=== PATIENT | male | born 1930 | race Caucasian/White ===

== ENCOUNTER → 2018-03-23 | Outpatient (CLI) | payer OTHER | LOC: RAD 03-17 10:12 | DX: K44.9 Diaphragmatic hernia without obstruction or gangrene (principal); Q39.6 Congenital diverticulum of esophagus; I10 Essential (primary) hypertension; E78.5 Hyperlipidemia, unspecified ==

== ENCOUNTER → 2018-04-18 | Outpatient (CLI) | payer OTHER | LOC: CAT 10:15 | PROVIDERS: Surgery | DX: K57.30 Diverticulosis of large intestine without perforation or abscess without bleeding (principal); N21.0 Calculus in bladder; K40.90 Unilateral inguinal hernia, without obstruction or gangrene, not specified as recurrent ==

== ENCOUNTER 2018-08-12 20:05 | Inpatient (IN) | payer OTHER ==
[~2018-08-12] VITALS: Ht 175.3 cm; Wt 82.9 kg
[2018-08-12 20:11] VITALS: BP 164/89
[2018-08-12] MEDS ORDERED: SIMVASTATIN20 MG PO (20:28)
[2018-08-12] MEDS ORDERED: AMARYL2 MG PO (20:28)
[2018-08-12] MEDS ORDERED: LISINOPRIL-HCT1 EACH PO (20:29)
[2018-08-12] MEDS ORDERED: METFORMIN HCL500 MG PO (20:30)
[2018-08-12 20:45] LABS: HEMATOCRIT 42.2 % (42.0-52.0); HEMOGLOBIN 14.3 gm/dL (14.0-18.0); MCHC 33.7 g/dL (28.0-37.0); MCV 94.8 fL (80.0-100.0); PLATELET COUNT 196 thou/uL (150-400); RBC 4.45 mil/uL (4.50-6.00); RDW 12.5 % (10.5-14.5); WBC 6.1 thou/uL (4.0-11.0)
[2018-08-12 20:55] LABS: ANION GAP 11 mmol/L (7-16); BUN 26 mg/dL (7-18); CALCIUM 9.3 mg/dL (8.5-10.1); CHLORIDE 102 mmol/L (98-107); CO2 26 mmol/L (21-32); CREATININE 1.1 mg/dL (0.7-1.3); GLUCOSE 173 mg/dL (74-106); SODIUM 139 mmol/L (136-145)
[2018-08-12 21:00] LABS: APTT 25.3 Seconds (24.5-32.8); PROTIME 10.7 Seconds (9.3-11.4)
[2018-08-12 21:04] LABS: ALBUMIN 3.8 g/dL (3.4-5.0); MAGNESIUM 2.1 mg/dL (1.8-2.4); SGOT 20 U/L (15-37); SGPT 26 U/L (30-65); TOTAL BILIRUBIN 0.4 mg/dL (<0.1-1.0); TOTAL PROTEIN 7.3 g/dL (6.4-8.2); TROPONIN-I <0.06 ng/mL (<0.06)
[2018-08-12 21:09] LABS: ABSOLUTE NEUTROPHILS 3.5 thou/uL (1.4-8.2)
[2018-08-12 21:10] LABS: ANISOCYTOSIS 1+
[2018-08-12] MEDS ORDERED: ASPIR-LOW81 MG PO (22:14)
[2018-08-12 22:23] VITALS: BP 167/86
[2018-08-12 23:00] VITALS: BP 144/98
[2018-08-12] MEDS ORDERED: PRESERVISION A1 EAC2 PO (23:07)
[2018-08-12 23:15] VITALS: BP 165/91
[2018-08-12 23:30] VITALS: BP 153/74
[2018-08-12 23:45] VITALS: BP 168/79
[2018-08-13] VITALS (53 sets, daily range): BP systolic 101–194; BP diastolic 50–91
--- NOTE | 2018-08-13 02:31 | NUR ---
08/12/188: REPORT RECEIVED FROM LAKESHIA YANG IN ED. PER REPORT DR. WELLS SAW PT IN ED. RN DID BEDSIDE SWALLOW EVAL IN ED, PT PASSED. 0: PT ARRIVED TO ROOM 245 ON ED CART, PT A/O AND TALKING, PT TRANSFERRED HIMSELF OVER TO ICU BED BY SCOOTING. CONNECTED PT TO ICU MONITOR. VSS, NIH SCORE 2, NO DISTRESS NOTED. HANDS COOL AND SLIGHTLY BLUE LIPS NOTED. VERY SLIGHT FACIAL DROOP NOTED ON RIGHT SIDE AND VERY MINIMAL DRIFT WITH RIGHT LEG NOTED, SPEECH CLEAR FOR THE MOST PART, GARBLED AT TIMES. STROKE PROTOCOL STARTED ALONG W/ ADMISSION PROCESS. PT EDUCATED ON BLEEDING S/S AND VERBALIZES UNDERSTANDING. NO ACTIVE BLEEDING NOTED. SEE DOCUMENTED ASSESSMENT. LEFT AC IV SL BUT INFILTRATED AND BRUISED, REMOVED, TIP INTACT, PRESSURE HELD, NO ACTIVE BLEEDING NOTED. FRIEND MARIXA AT BEDSIDE, UPDATED ON PT. [id number]: DR. WELLS CALLED TO CHECK ON PT - UPDATES GIVEN.
--- NOTE | 2018-08-13 02:51 | EKG ---
[place] [address] [facility] [place] [address] ELECTROCARDIOGRAM REPORT Name: MYLES PETERNETH Aron Room #: 245-P ADM IN M.R.#: [id number] ������������������ Admission: 08/12/18 ������������������ Attend Phys: David Rivero MD Discharge: ������������������ Date of : 32 Report #: [id number] ����������������������������������������������������������������� [id number] THIS REPORT FOR: //name// [facility] ED Test Date: 2018-08-12 Test Time: 20:36:31 Pat Name: TERENCE PETER Department: Room: [facility] Gender: M Fat Pressroom Worker: WG : 1930 Requested By: Wicho Rajput Order Number: [id number] MD: Wiley Cisneros Measurements Intervals [place] Rate: 62 P: 65 TX: 207 QRS: -7 QRSD: 141 T: -27 QT: 486 QTc: 494 Interpretive Statements Sinus rhythm Atrial premature complexes Right bundle branch block Baseline wander Compared to ECG 01/31/2009 13:08:39 Atrial premature complex(es) now present Electronically Signed On 08-13-2018 2:51:41 [employer] by Wiley Cisneros [email or web address] ��������������������������������������������� <ELECTRONICALLY SIGNED> ���������������������������������������� By: Wiley Cisneros MD ��������������������������������������������� 08/13/18 0251 35 35 Wiley Cisneros MD /EPI
--- NOTE | 2018-08-13 07:28 | NUR ---
PT'S VSS OVERNIGHT, NO DISTRESS NOTED, PT ON ROOM AIR. ASSESSMENTS PER DOCUMENTATION. NIH SCORE 1-2 MOST OF THE NIGHT. VERY SLIGHT RIGHT SIDED BODY WEAKNESS AND MINIMAL RIGHT SIDED FACIAL DROOP AT TIMES, RLE DRIFT INCONSISTENTLY. PT A/O AND ANSWERS ALL QUESTIONS APPROPIATELY. PT DID HAVE EPISODES OF BRADYCARDIA 40-50'S WHILE IN A DEEP SLEEP. BEDSIDE SWALLOW EVAL COMPLETED AND PASSED WITHOUT DIFFICULTY, SPEECH THERAPY EVAL ALSO IN. PT VOIDED ADEQUATE AMOUNT OF URINE > 1L. SKIN DRY AND INTACT. FINGERS COOL AND LIPS SLIGHTLY BLUE IN COLOR. NO PRN LABETALOL GIVEN OVERNIGHT. AROUND 0600 SBP 130'S - 500CC IVF BOLUS GIVEN PER DR. WELLS'S ORDERS PREVIOUSLY IN THE NIGHT. PT TOLERATED WELL, BP INCREASED ACCORDINGLY. REPORT GIVEN TO DAY SHIFT RN.
--- NOTE | 2018-08-13 17:32 | NUR ---
NIH CONT TO BE 1-2. BP KEPT WITHIN DESIRED LIMITS. SSI FOR BLOOD SUGAR CONTROL. MRI OF HEAD COMPLETED. DR WELLS HAS SEEN RESULTS, NO NEW ORDERS. PT UP TO CHAIR WITH STANDBY ASSIST, GAIT BELT, AND WALKER. PT/OT/ST ALL WORKED WITH PT TODAY.
--- NOTE | 2018-08-13 17:39 | HC ---
[facility] [place] [address] CONSULTATION Name: TERENCE PETER Room #: 245-P ADM IN M.R.#: [id number] Admission: 08/12/18 ������������������ Attend Phys: David Rivero MD Discharge: ������������������ Date of : 32 Report #: [id number] THIS REPORT FOR: //name// CC: David Hua DATE OF SERVICE: 08/12/2018 HISTORY OF PRESENT ILLNESS: This is an 88-year-old male patient who was evaluated by me for stroke. The history I get is different than the patient originally provided. The patient originally said that his stroke symptom started at around 4:30, but I spent a considerable amount of time. The patient is pretty confident now that it started at 5:30. Some of the symptoms actually started around 6:00. He is very scared of disability. His speech is significantly slurred and he has right upper extremity and right lower extremity weakness. He does have some double vision, that double vision is going on for 1 year. 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 He does not have any prior history for stroke. I confirmed this multiple times with him and he is now pretty confident that the symptoms started around 5:30 and even then the symptom was minor and major symptoms occurred around 6:00. The dictation is limited because of the time limitation. I confirmed that he has pretty significant speech difficulty and he has right-sided weakness. He is not able to walk. We frankly talked to him about TPA. I discussed with him that TPA is approved by FDA only within 3 hours of symptom onset. It has been tried in 4-1/2 hour window, but initially the patients were excluded with the age criteria, but now age criteria is not taken into consideration by some neurologist and is taken into consideration by other neurologist. I frankly discussed with him that the timing need to be accurate. If timing is not correlate the effectiveness of TPA decreases and the chances of complication increases. They were very confident the timing is accurate and symptoms started around 5:30. I frankly discussed with them that 4-1/2 hour window is not approved by TPA and effectiveness is much limited than 3-hour window. I also discussed their age criteria and the fact that the complication rate increases with the age. In the original study, the patients of his age were excluded, but now the emphasis has been to include these patients if they want to be included. The patient understood it very well. He is competent to make his decision. He was given all the options. He really wanted to get TPA. He indicated that he is very scared about the disability he has. He understands the TPA is not a magic bullet and it has benefit anywhere between 12% to 30% depending upon how [address] [address] CONSULTATION Name: TERENCE PETER Room #: 245-P ADM IN M.R.#: [id number] Admission: 08/12/18 ������������������ Attend Phys: David Rivero MD Discharge: ������������������ Date of : 32 Report #: [id number] you count that. It does have potentially catastrophic and fatal bleedings in roughly about 10% of the people at his age. After discussing all of it with the patient very frankly, the patient was started on TPA. He will be taken back for CT angio with perfusion. It will take a while for the report to come back. It is shows penumbra and a clot in the large vessel then he may have to go for a clot retrieval. Otherwise, he will be managed in the ICU and we need to monitor his blood pressure. TPA was started by Emergency Room physician, Dr. Rajput and he is the one who went over the criteria for exclusion in this patient. This was a difficult situation where management was not clear and the patient was explained all the advantages and disadvantage of TPA and he really wanted to proceed with TPA because he is very scared of disability and the present amount of disability was not acceptable to him and he was becoming worst as per history. We will dictate the other note later on as time is limited in this patient to manage him. this addendum is being added at the time of signing this note. Patient's CT angiogram and perfusion was reviewed. That did not show any abnormality. Patient tolerated TPA well. More than 50 minutes of time was spent taking care of this patient and majority of that time was spent counseling the patient and coordinating his care ��������������������������������������������� <ELECTRONICALLY SIGNED> ���������������������������������������� By: Michael Hua MD ��������������������������������������������� 08/13/18 1739 [id number] Michael Hua MD /nt
[2018-08-14] VITALS (21 sets, daily range): BP systolic 122–188; BP diastolic 49–92
--- NOTE | 2018-08-14 05:30 | NUR ---
ASSESSMENTS PER DOCUMENTATION. VSS, NO DISTRESS NOTED, PT REMAINS ON ROOM AIR. PT BRADYCARDIC AT TIMES, HR OF 39 NOTED ONCE WHILE ASLEEP. SLEEP APNEA NOTED, PT DESATS INTO THE 80'S, LOWEST SAT OF 81% WITH ALMOST IMMEDIATE INCREASE IN SATS. PT WAS VERY RESTFUL OVERNIGHT. NIH REMAINS 1-2, STILL HAS RIGHT SIDED WEAKNESS W/ VERY SLIGHT RIGHT SIDED FACIAL DROOP.
[2018-08-14 11:43] LABS: HEMATOCRIT 41.2 % (42.0-52.0); HEMOGLOBIN 13.9 gm/dL (14.0-18.0); MCH 32.2 pg (26.0-34.0); MCHC 33.6 g/dL (28.0-37.0); MCV 95.6 fL (80.0-100.0); RBC 4.31 mil/uL (4.50-6.00); RDW 12.8 % (10.5-14.5); WBC 5.7 thou/uL (4.0-11.0)
[2018-08-14 11:58] LABS: CALCIUM 9.5 mg/dL (8.5-10.1); POTASSIUM 3.9 mmol/L (3.5-5.1)
--- NOTE | 2018-08-14 17:54 | NUR ---
NIH Q4H 1-2, NO CHANGES. HEAD CT (-). SB-SR ON TELE. PT DENIES PAIN. CCT TRANSFER ORDERS RECEIVED, AWAITING AVAILABLE BED.
[2018-08-15 00:49] VITALS: BP 142/79
[2018-08-15 04:49] VITALS: BP 137/71
[2018-08-15 05:06] LABS: CHOLESTEROL 166 mg/dL (<200); HDL CHOLESTEROL 60 mg/dL (>40); LDL CHOLESTEROL 88 mg/dL (<100); TC:HDL 2.8 Ratio (Not establshd); TRIGLYCERIDE 91 mg/dL (<150); VLDL 18 mg/dL (<40)
[2018-08-15 05:14] LABS: SERUM ASSESSMENT Clear
--- NOTE | 2018-08-15 07:44 | NUR ---
SEE [facility] FOR ASSESSMENT. PT AWAITING REHAB CONSULT. SLEPT WELL DURING NOC. AWAKENS EASILY. NIH 3 WITH CONT SLURRED SPEECH AND RT SIDED WEAKNESS, SL RT FACIAL DROOP. DENIES PAIN. BP WITHIN PARAMETERS. PT PROGRESSING TOWARD GOALS. CONT PLAN OF CARE
[2018-08-15 09:00] VITALS: BP 162/83
[2018-08-15 10:17] VITALS: BP 155/82
[2018-08-15 10:18] VITALS: BP 161/87
--- NOTE | 2018-08-15 10:29 | NUR ---
CM ASSESSMENT: CASE OPENED FOR DC PLANNING. CLINICAL INFO REVIEWED. ADMITTED WITH CVA. THERAPY EVALS IN PROGRESS. ACUTE REHAB CONSULT. MET WITH PT WHO IS ALERT AND ORIENTED X4. PT LIVES ALONE IN HOUSE IN [facility]. INDEPENDENT WITH ADLS, IADLS, DRIVING. NO DME OR PREVIOUS HH. PT HAS DTR [facility] L[facility]ING IN [facility]. CLOSEST SUPPORT IS FRIEND MARIXA [phone]. PT IS AGREEABLE TO 5N ACUTE REHAB STAY IF ACCEPTED. UPDATED 5N RACHEL AND DR. WHITEHEAD AND BUNCH MAKER.
[2018-08-15 12:05] VITALS: BP 164/77
[2018-08-15] MEDS ORDERED: LISINOPRIL5 MG PO (12:43)
[2018-08-15] MEDS ORDERED: ASA5UEC PO (12:43)
[2018-08-15] MEDS ORDERED: ACETAMINOPHEN325 M1 PO (12:43)
--- NOTE | 2018-08-15 13:39 | 2DMMODE ---
[facility] [place] [address] 2 D/M-MODE ECHOCARDIOGRAM Name: TERENCE PETER Room #: 245-P [facility] IN .R.#: [id number] ������������� Admission: 08/12/18 ������������� Attend Phys: David Rivero, Discharge: ��� ������������� ��� Date of : 32 Date of Service: 08/15/18 1339 �� Report #: [id number] �������� ��������������������������������������������[id number] THIS REPORT FOR: //name// APPROVED REPORT Study performed: 08/15/2018 11:29:46 EXAM: Comprehensive 2D, Doppler, and color-flow Echocardiogram Patient Location: ICU Room #: [facility] Status: routine BSA: 1.99 HR: 63 bpm BP: 162/83 mmHg Other Information Study Quality: Adequate Indications CVA Echo Enhancing Agent Indication: Rule out Shunt Agent(s) / Amount(s) Used: Agitated Saline 6 cc 2D Dimensions RVDd: 42.11 mm IVSd: 14.22 (7-11mm) LVOT Diam: 22.42 (18-24mm) LVDd: 49.73 mm PWd: 13.62 (7-11mm) Ascending Ao: 41.28 (22-36mm) LVDs: 36.98 (25-40mm) Aortic Root: 40.71 mm Volumes Left Atrial Volume (Systole) Single Plane 4CH: 59.76 mL Single Plane 2CH: 73.54 mL LA ESV Index: 37.00 mL/m2 Aortic Valve AoV Peak Diego.: 2.29 m/s AO Peak Gr.: 20.98 mmHg LVOT Max P.61 mmHg AO Mean Gr.: 12.28 mmHg AO V2 Mean: 1.68 m/s LVOT Max V: 0.81 m/s AO V2 VTI: 55.00 cm AMANDA Vmax: 1.39 cm2 [facility] [place] [address] 2 D/M-MODE ECHOCARDIOGRAM Name: TERENCE PETER Room #: 245-P [facility] IN .R.#: [id number] ������������� Admission: 08/12/18 ������������� Attend Phys: David Rivero, Discharge: ��� ������������� ��� Date of : 32 Date of Service: 08/15/18 1339 �� Report #: [id number] �������� ��������������������������������������������[id number] Mitral Valve E/A Ratio: 1.2 MV Decel. Time: 274.70 ms MV E Max Diego.: 0.66 m/s MV A Diego.: 0.57 m/s MV PHT: 79.66 ms IVRT: 110.73 ms Pulmonary Valve PV Peak Diego.: 0.78 m/s PV Peak Gr.: 2.42 mmHg Tricuspid Valve TR Peak Diego.: 2.85 m/s RAP Estimate: 5.00 mmHg TR Peak Gr.: 32.46 mmHg PA Pressure: 37.00 mmHg Left Ventricle The left ventricle is normal size. There is normal LV segmental wall motion. Mild concentric left ventricular hypertrophy. Left ventricular systolic function is normal. LVEF is 55%. Moderate diastolic dysfunction is present (pseudonormal filling). Right Ventricle The right ventricle is normal size. The right ventricular systolic function is normal. Atria Left atrium is mildly dilated. No shunting noted with contrast bubble injection. Right atrium is mildly dilated. Aortic Valve Aortic valve is moderately calcified. Trace aortic regurgitation. 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 Calculated aortic valve area is 1.4 cm2 with maximum pressure gradient of 21 mmHg and mean pressure gradient of 12 mmHg. Mitral Valve Mitral valve leaflets are mildly thickened. Moderate mitral regurgitation. Tricuspid Valve The tricuspid valve is normal in structure. Moderate tricuspid regurgitation. Estimated PAP is 40mmHg. Pulmonic Valve [address] [address] 2 D/M-MODE ECHOCARDIOGRAM Name: TERENCE PETER Room #: 245-P [facility] IN [facility]#: [id number] ������������� Admission: 08/12/18 ������������� Attend Phys: David Rivero, Discharge: ��� ������������� ��� Date of : 32 Date of Service: 08/15/18 1339 �� Report #: [id number] �������� ��������������������������������������������[id number] The pulmonary valve is normal in structure. Moderate pulmonic regurgitation. 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 IVC is normal in size and collapses >50% with inspiration. Pericardium There is no pericardial effusion. <Conclusion> The left ventricle is normal size. LVEF is 55%. Left atrium is mildly dilated. No shunting noted with contrast bubble injection. Right atrium is mildly dilated. Aortic valve is moderately calcified. Trace aortic regurgitation. 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 Calculated aortic valve area is 1.4 cm2 with maximum pressure gradient of 21 mmHg and mean pressure gradient of 12 mmHg. Mitral valve leaflets are mildly thickened. Moderate mitral regurgitation. The tricuspid valve is normal in structure. Moderate tricuspid regurgitation. Estimated PAP is 40mmHg. The pulmonary valve is normal in structure. Moderate pulmonic regurgitation. There is no pericardial effusion. ��������������������������������������������� <ELECTRONICALLY SIGNED> ���������������������������������������� By: Wiley Cisneros MD ��������������������������������������������� 08/15/18 1339 1339 1339 Wiley Cisneros MD /INF
== END 2018-08-15 14:29 | DRG 63 ==
LOC: ER 20:05 → ICU 21:49 → EROBS 21:49 → ICU 22:25
PROVIDERS: Emergency Medicine; Psychiatry & Neurology Neuromuscular Medicine; ADMIT Family Medicine
DX: I63.9 Cerebral infarction, unspecified (principal); I10 Essential (primary) hypertension; E78.00 Pure hypercholesterolemia, unspecified; G25.81 Restless legs syndrome; E03.9 Hypothyroidism, unspecified; E11.65 Type 2 diabetes mellitus with hyperglycemia; Z89.022 Acquired absence of left finger(s); Z90.49 Acquired absence of other specified parts of digestive tract; Z79.899 Other long term (current) drug therapy
CPT/HCPCS: 10078

== ENCOUNTER 2018-08-15 12:36 | Inpatient (IN) | payer OTHER ==
[~2018-08-15] VITALS: Ht 175.3 cm; Wt 84.8 kg
[~2018-08-15 12:36] MED LIST: AMARYL2 MG PO; ASPIR-LOW81 MG PO; LISINOPRIL-HCT1 EACH PO; METFORMIN HCL500 MG PO; PRESERVISION A1 EAC2 PO; SIMVASTATIN20 MG PO
[2018-08-15] MEDS ORDERED: ASA5UEC PO (12:43)
[2018-08-15] MEDS ORDERED: LISINOPRIL5 MG PO (12:43)
[2018-08-15] MEDS ORDERED: ACETAMINOPHEN325 M1 PO (12:43)
[2018-08-15 14:35] VITALS: BP 155/78
--- NOTE | 2018-08-15 14:44 | NUR ---
DISCHARGE NOTE PT ALERT AND ORRIENTED. STEADY STAND BY ASSIST TO THE CHAIR. REPORT GIVEN TO CARLA AT 1400. ASSESSMENT AND VITALS ORDERED. PT TRANSFERED AT 1420 IN W/C TO THE FLOOR. IV KEPT PER RN REQUEST IN ORDER TO GIVEN MEDS. PT HAD NO COMPLAINTS OF PAIN, SOA, CHEST PAIN, OR N/V DURING THE SHIFT. PATIENT LIVE PARTNER MARIXA CALLED TO BE NOTIFIED OF TRANSFERS.
--- NOTE | 2018-08-15 16:34 | NUR ---
PT ARRIVED AT 1430 FROM ICU. PT IS ALERT AND ORIENTED*4 BUT FORGETFUL, STATED THAT HE HAS DIFFICULTY REMEMBERING THINGS. HE IS APPROPRIATE AND CALLS APPROPRIATELY. DENIES PAIN. VITALS STABLE. SKIN IS INTACT. HAS AN IV ON RIGHT AC, PATENT AND INTACT. UP WITH 1 PERSON MIN ASSIST, AMBULATED FROM BED TO CHAIR AND TOLERATED WELL. ANSWERED ALL ADMISSION QUESTIONS AND SIGNED ALL CONSENTS. Q1H VISUAL CHECKS. CALL LIGHT WITHIN REACH. FALL PRECAUTIONS IN PLACE
[2018-08-15 19:30] VITALS: BP 150/72
--- NOTE | 2018-08-16 00:29 | NUR ---
PT ASSESSMENT COMPLETED AND VSS. MEDS GIVEN ORDERED AND WELL TOLERATED. FALL PRECAUTIONS IN PLACE. PT DENIES PAIN/N/SOA. UP TO THE BATHROOM WITH ASST/GAIT/WALKER. SLEEPING WELL. WILL CONTINUE TO MONITOR FREQUENTLY.
[2018-08-16 04:41] LABS: HEMATOCRIT 39.8 % (42.0-52.0); HEMOGLOBIN 13.6 gm/dL (14.0-18.0); MCH 32.3 pg (26.0-34.0); MCHC 34.3 g/dL (28.0-37.0); MCV 94.2 fL (80.0-100.0); RBC 4.22 mil/uL (4.50-6.00); WBC 5.8 thou/uL (4.0-11.0)
[2018-08-16 04:48] LABS: POTASSIUM 4.2 mmol/L (3.5-5.1)
[2018-08-16 08:26] VITALS: BP 177/89
--- NOTE | 2018-08-16 12:32 | NUR ---
team meeting, recommendation : re team
--- NOTE | 2018-08-16 15:18 | NUR ---
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 ASSESSMENTS PER CHART. PT DENIES PAIN TODAY. WANTS TO STAY UPDATED ON POC AND THERAPY SCHEDULE. SCHEDULE WRITTEN ON BOARD FOR PT. DR WHITEHEAD NOTIFIED THIS MORNING OF PT MOVING TO 510. PT HAD GOOD ENDURANCE WITH THERAPY TODAY, PROGRESSING IN POC GOALS. VSS. LABS NOTED. WILL CONT TO MONITOR AND FOLLOW POC.
[2018-08-16 19:10] VITALS: BP 155/76
--- NOTE | 2018-08-17 03:44 | NUR ---
CALLING FOR STANDBY ASSIST UP TO BATHOOM WITH GAIT BELT AND WALKER. PLEASANT AND DENYING PAIN. MINIMAL RIGHT SIDED WEAKNESS APPARENT.
--- NOTE | 2018-08-17 08:32 | NUR ---
PT IS A&0X4, VERY [place], SLIGHTLY FORGETFUL, DIET DELIVERED WAS DIAB CARB CONTROL YET NEEDS MECH SOFT CHOPPED, ADDED IN , WILL DELETE OTHER DIET THIS SHIFT, PT UNDERGOING ASSESSMENT SPEECH THERAPY WHO CAUGHT THE DIET THAT NEEDED ADJUSTING. ENCOURAGED PT TO USE CALL LIGHT FOR ANY NEEDS
[2018-08-17 09:29] VITALS: BP 143/77
[2018-08-17 19:18] VITALS: BP 151/93
--- NOTE | 2018-08-18 04:24 | NUR ---
UP TO BATHROOM FOR SIGNIFICANT VOID APPROX EVERY 3 HOURS. NO BM THIS SHIFT. COLACE INITIATED. PATIENT TOLERATING SCDs. USING GAIT BELT AND WALKER WITH STEADY GAIT AND VERY LITTLE RIGHT SIDE WEAKNESS SEEN
[2018-08-18 05:10] LABS: GLYCOHEMOGLOBIN (HGB A1C) 7.4 % (4.8-5.6)
[2018-08-18 07:30] VITALS: BP 166/96
--- NOTE | 2018-08-18 12:56 | NUR ---
ASSUMED CARES AT 0700. PT AWAKE, ALERT AND ORIENTED*4. DENIES PAIN. BP ELEVATED THIS AM, BP LOWERING MEDS ADMINISTERED. ALL OTHER VITALS REMAINED STABLE. PT CONTINUES TO HAVE MILD RIGHT SIDED WEAKNESS AND RIGHT FACIAL DROOP. PT UP WITH 1 PERSON MIN ASSIST, AMBULATED WITH PT AND OT AND TOLERATED WELL. SKIN REMAINS INTACT. Q1H VISUAL CHECKS. CALL LIGHT WITHIN REACH. FALL PRECAUTIONS IN PLACE
[2018-08-18 21:01] VITALS: BP 145/74
--- NOTE | 2018-08-19 00:34 | NUR ---
PT ALERT AND ORIENTED X 4. AMB TO BR WITH WALKER AND ASSIST X 1 WITHOUT DIFFICULTY. RIGHT SIDED WEAKNESS. PT REFUSED PEPCID AT HS. PT DENIES PAIN OR DISCOMFORT. BED ALARM ON FOR SAFETY. PT APPEARS TO BE SLEEPING ON HOURLY ROUNDS.
[2018-08-19 07:30] VITALS: BP 167/81
--- NOTE | 2018-08-19 18:12 | NUR ---
PT ALERT AND ORIENTED TIMES FOUR. VSS, 97%RA. PT DENIES PAIN/SOA. PT WORKED WELL WITH PT/OT, UP SITTING IN THE CHAIR FOR MOST OF THE DAY. PT TOLERATES MEDS AND MEALS. FAMILY FRIEND AT BEDSIDE THE AFTERNOON. PT PROGRESSING TOWRADS POC GOALS.
[2018-08-19 19:30] VITALS: BP 148/63
--- NOTE | 2018-08-20 02:56 | NUR ---
assumed care at approx 1900 evening 08/19. pt sitting up in recliner at change of shift resting.pt pleasant and cooperative stating he has been working hard with therapy. pt up to bathroom to void and assisted pt into gown change at hs. pt appears to be sleeping soundly with hourly rounding checks. bed alarm on and call light in reach. will continue to monitor.
[2018-08-20 08:00] VITALS: BP 172/97
--- NOTE | 2018-08-20 09:14 | NUR ---
ASSUMED CARE AT 0700. PATIENT IS ALERT AND ORIENTED. PATIENT HAS RIGHT SIDED WEAKNESS. PATIENT IS UP WIITH WALKER AND GAIT BELT TO AMBULATE TO THE BATHROOM TO VOID MAVERICK COLORED URINE. LUNGS ARE CLEAR , ABD IS SOFT WITH BSX4. PATIENT IS UP IN CHAIR FOR MEALS. FALL AND SAFETY PROTOCOLS IN PLACE. DENIES ANY PAIN AT THIS TIME. CONTINUES TO PROGESS TOWARDS D/C GOALS. WILL CONTINUE TO MONITER.
[2018-08-20 19:40] VITALS: BP 164/83
--- NOTE | 2018-08-21 03:50 | NUR ---
UP TO BATHROOM WITH STANDBY ASSIST. SITS DOWN WELL USING GRAB BARS. DECLINING DOLACE BECAUSE HE HAD SOFT BM 3/2. OVERCOMING RIGHT SIDE WEAKNESS WELL WITH HIS WALKER. VERY AWARE OF NEED TO AVOID STRAWS
[2018-08-21 07:30] VITALS: BP 156/83
--- NOTE | 2018-08-21 11:16 | NUR ---
ASSUMED CARES AT 0700. PT AWAKE, ALERT AND ORIENTED *4. DENIES PAIN. VITALS REMAINED STABLE. PT CONTINUES TO HAVE SOME MILD RIGHT SIDED WEAKNESS WITH MILD RIGHT FACIAL DROOP. UP WITH 1 PERSON SBA, GAITBELT AND WALKER, AMBULATED TO THE BATHROOM AND BACK AND ON THE HALLWAY AND TOLERATED WELL. Q1H VISUAL CHECKS. CALL LIGHT WITHIN REACH. FALL PRECAUTIONS IN PLACE
[2018-08-21 19:30] VITALS: BP 150/68
--- NOTE | 2018-08-21 22:00 | NUR ---
UP TO BATHROOM WITH STANDBY ASSIST. ABLE TO REMOVE SWEATSHIRT AND JEANS. 4TH BM TODAY IS LIGHT BROWN AND FORMED, COLACE DECLINED.
--- NOTE | 2018-08-22 04:49 | NUR ---
WILL CONTINUE STANDBY ASSIST OF TRIPS TO BATHROOM. PATIENT IS STEADY WITH WALKER AND GAIT BELT, BUT FORGOT TO PULL UP HIS SHORTS BEFORE WALKING BACK FROM TOILET TO BED, ONLY OBSERVED HIM SKIPPING THIS STEP ONCE.
[2018-08-22 07:15] VITALS: BP 159/84
--- NOTE | 2018-08-22 11:10 | NUR ---
ASSUMED CARES AT 0700. PT AWAKE, ALERT AND ORIENTED*4. C/O LOW BACK PAIN, CHRONIC, LIDOCAINE PATCH 5% ORDERED AND IN PLACE LOWER BACK. VITALS REMAIN STABLE. PT CONTINUES TO HAVE MILD BLE EDEMA, EXTREMITIES ELEVATED. CONTINUES TO HAVE RIGHT SIDED WEAKNESS AND MILD RIGHT SIDED FACIAL DROOP. PT UP WITH 1 PERSON MIN ASSIST, AMBULATED WITH THERAPY LONG DISTANCE AND TOLERATED WELL. Q1H VISUAL CHECKS. CALL LIGHT WITHIN REACH
[2018-08-22 19:00] VITALS: BP 150/67
--- NOTE | 2018-08-23 02:02 | NUR ---
PT ALERT AND ORIENTED X 4, FORGETFUL. AMB TO BR WITH WALKER AND ASSIST X 1 WITHOUT DIFFICULTY. SLIGHT RIGHT SIDED WEAKNESS. PT DENIES PAIN OR DISCOMFORT. BED ALARM ON FOR SAFETY. PT APPEARS TO BE SLEEPING ON HOURLY ROUNDS.
[2018-08-23 07:15] VITALS: BP 165/76
--- NOTE | 2018-08-23 07:55 | NUR ---
ASSUMED CARE AT 0700. PATIENT IS ALERT AND ORIENTED X4. PATIENT HAS MILD RIGHT SIDED WEAKNESS. PATIENT IS UP WITH ASSIST OF 1 STAFF, GAIT BELT AND WALKER TO BATHROOM TO VOID MAVERICK COLORED URINE. LUNGS ARE CLEAR AND DEMINISHED. ABD IS SOFT WITH BSX4. UP IN CHAIR FOR BREAKFAST. FALL AND SAFETY PROTOCOLS IN PLACE. DENIES ANY PAIN. CONTINUES TO PROGRESS SLOWLY TOWARDS D/C GOALS. WILL CONTINUE TO MONITER
--- NOTE | 2018-08-23 10:55 | NUR ---
TO RADIOLOGY PER ROLLING CHAIR FOR VIDEO SWALLOW. WILL CONTINUE TO MONITER UPON RETURN.
--- NOTE | 2018-08-23 17:02 | NUR ---
Team conference held today. Discussed with the pt and friend Cecile at bedside. Anticipated dc date this Wednesday08/26/18. Pt [facility] [address] [facility] [place]. HH RN,Pt,OT, and ST recommended prior to transition to outpt at [facility]. The pt wants to use affiliated to the hospital. Referral called to [facility] for start of care this weekend. Pt has a rollar walker for home use. Cecile has been present for theray sessions here and feels confident she can manage his diet recommendations and help with med mngmt. Will follow to finalize hh at [facility].
[2018-08-23 17:05] VITALS: BP 165/76
[2018-08-23 19:44] VITALS: BP 162/76
--- NOTE | 2018-08-24 04:31 | NUR ---
Assumed care of pt at 1915. Pt alert and oriented x4, calm and cooperative. Up in chair through the evening. Ambulates to bathroom with standby assist using gait belt and walker. c/o lower back pain, denies dypsnea or nausea. Has appeared to be sleeping when checked on hourly rounds. Bed alarm on.
[2018-08-24 08:18] VITALS: BP 168/80
--- NOTE | 2018-08-24 12:02 | NUR ---
ASSUMED CARE AT 0700. PATIENT IS ALERT AND ORIENTED X4. PATIENT HAS RIGHT MILD SIDED WEAKNESS. PATIENT IS ASSIST OF 1 STAFF AND GAIT BELT AND WALKER TO BR. PATIENT IS VOIDING MAVERICK COLORED URINE. UP IN CHAIR FOR MEALS. FALL AND SAFETY PROTOCOLS IN PLACE. DENIES ANY PAIN. CONTINUES TO PROGRESS TOWARDS D/C GOALS. WILL CONTINUE TO MONITER.
[2018-08-24 20:26] VITALS: BP 146/81
--- NOTE | 2018-08-25 00:13 | NUR ---
PT ALERT AND ORIENTED X 4, FORGETFUL. AMB TO BR WITH WALKER AND ASSIST X 1 WITHOUT DIFFICULTY. MILD RIGHT SIDED WEAKNESS. PT DENIES PAIN OR DISCOMFORT. BED ALARM ON FOR SAFETY. PT APPEARS TO BE SLEEPING ON HOURLY ROUNDS.
[2018-08-25 08:44] VITALS: BP 141/76
--- NOTE | 2018-08-25 09:03 | NUR ---
PT IS A&0X4, DID NOT WANT HIS A.M. MEDS DURING BREAKFAST ASKED ME TO RETURN IN 30 MIN. ENCOURAGED HIM TO USE CALL LIGHT FOR ANY NEEDS. RA, REPORT OF SBA W/WALKER. ENCOURAGED HIM TO CALL FOR ANY MOVING AROUND IN THE ROOM HE'D LIKE TO DO, FOR SAFETY. DECLINES ANY NEED FOR TYLENOL AT THIS TIME, AGREED TO TAKE DOCUSATE THIS ONE TIME
--- NOTE | 2018-08-25 11:09 | H ---
[facility] [address] [place] [address] HISTORY AND PHYSICAL Name: TERENCE PETER Room #: 510-P ADM IN M.R.#: [id number] Admission: 08/15/18 ������������������ Attend Phys: Hector Berrios MD Discharge: ������������������ Date of : 32 Report #: [id number] THIS REPORT FOR: //name// CC: Hector Rivero DATE OF SERVICE: 08/15/2018 HISTORY AND PHYSICAL/POST-ADMISSION PHYSICIAN EVALUATION HISTORY OF PRESENT ILLNESS: The patient is an 88-year-old white male, right-handed, originally admitted to [facility] on 08/12/2018 with slurred speech, right-sided weakness. He underwent TPA. He was diagnosed with a brain stem CVA. Neurology has been involved and they recommend a 30-day event monitor for him as an outpatient to look for atrial fibrillation. He was started on aspirin. He was felt to be medically stabilized and ready for an acute in-hospital inpatient rehabilitation stay. He has had a significant functional decline from his premorbid status. PAST MEDICAL HISTORY: Includes obstructive sleep apnea, hypertension, left index finger amputation, hernia repair abdominal x 3, cholecystectomy, carpal tunnel repair right wrist, neck surgery 09/2008, elevated cholesterol, and restless leg syndrome. HABITS: Alcohol use weekly, 1-2 drinks. No history of tobacco abuse. ALLERGIES: No known drug allergies. SOCIAL HISTORY: Lives alone, 2 steps entry, [place], [place]. He has a supportive female friend, was independent driving prior to admission. REVIEW OF SYSTEMS: Did not offer any current complaints of chest pain, shortness of breath or abdominal discomfort. Denies any swallowing difficulties. He has some mild slurring that he notes. He has some right-sided weakness that he thinks is overall improving. No focal extremity pain complaints. No dizziness. No skin issues. PHYSICAL EXAMINATION: GENERAL: He is a pleasant 88-year-old right-handed white male in no obvious distress. VITAL SIGNS: Last recorded temperature 97.4, pulse 65, respirations 17, blood pressure 150/72. NEUROLOGIC: He is alert, pleasant, oriented. Facies appeared symmetric except for a depressed right nasolabial fold and he might have some slight right-sided facial droop. No obvious visual field neglect to confrontation. CHEST: Sounded clear to auscultation. [facility] [address] [place] [address] HISTORY AND PHYSICAL Name: TERENCE PETER Room #: 510-P [facility] IN .R.#: [id number] Admission: 08/15/18 ������������������ Attend Phys: Hector Berrios MD Discharge: ������������������ Date of : 32 Report #: [id number] CARDIOVASCULAR: Regular rate and rhythm. ABDOMEN: Bowel sounds positive, nontender. GENITOURINARY AND RECTAL: Deferred. EXTREMITIES: He has functional range of motion of both upper extremities and lower extremities, full strength. Left upper and left lower extremity without focal weakness. Right upper extremity is maybe a grade 4-/5. Right lower extremity is 4-/5. Slight decreased fine finger coordination. Sensation appears to be slightly decreased right upper and right lower extremity to simultaneous stimulation. He is working in therapies with min assist sit to stand. He needs min assist for short distance ambulation. Some impairment of balance, he appears to have reasonable insight. He does need min assist for lower body dressing prior to admission. ASSESSMENT: An 88-year-old right-handed white male admitted with the following problem list: 1. Brainstem cerebrovascular accident. 2. Right-sided weakness. 3. Dysarthria. 4. Rule out dysphagia. 5. Recommendation to do an outpatient 30-day event monitor to look for atrial fibrillation. 6. Hyperglycemia. 7. Hypothyroidism. PLAN: The patient is admitted for acute in-hospital inpatient rehabilitation. From a postadmission physician evaluation perspective, there are no relevant changes since the preadmission screening. Please see the review of prior and current medical and functional conditions and comorbidities. Please see the patient's previous and current functional status. As far as risk of complications, the patient has the above noted comorbidities. The initial plan of care involves the interdisciplinary acute inpatient rehabilitation program with the goal of maximizing his functional independence, so he can hopefully return back to his prior living situation. Measurable functional goals would be for him to become modified independent with transfers, mobility and ADLs as well as improvement in communication, assessment regarding swallowing. His prognosis appears reasonably good with estimated length of stay probably at least 7-14 days pending progress. Potential barriers would include his decreased functional status and above noted medical comorbidities. The patient meets diagnostic criteria for an acute in-hospital inpatient rehabilitation stay. He meets the medical necessity criteria and we will have [address] [address] HISTORY AND PHYSICAL Name: TERENCE PETER Room #: 510-P [facility] IN [facility]#: [id number] Admission: 08/15/18 ������������������ Attend Phys: Hector Berrios MD Discharge: ������������������ Date of : 32 Report #: [id number] the [employer] identity management consultant physicians continue to follow. He does have the tolerance for therapies and has appropriate discharge goals back to the home setting. ��������������������������������������������� <ELECTRONICALLY SIGNED> ���������������������������������������� By: Hector Berrios MD ��������������������������������������������� 08/25/18 1109 0806 0951 Hector Berrios MD /nt
--- NOTE | 2018-08-25 11:09 | PLAN ---
[facility] [place] [address] [place] [address] REHAB UNIT PLAN OF CARE Name: TERENCE PETER Room #: 510-P ADM IN M.R.#: [id number] Admission: 08/15/18 ������������������ Attend Phys: Hector Berrios MD Discharge: ������������������ Date of : 32 Report #: [id number] THIS REPORT FOR: //name// CC: Hector Rivero DATE OF SERVICE: 08/17/2018 PROGRESS NOTE AND OVERALL PLAN OF CARE SUBJECTIVE: The patient was seen earlier. He was in no distress. Last recorded temperature 36.7, pulse 65, respirations 20, blood pressure 155/76. He has been working in his therapies with transfers, min assist. Gait min assist 70 feet with a front-wheeled walker. He is in no distress today. He has been working on coordination activities in therapies as well with lower body dressing, mod assist. Comprehension is mild. He has mild cognitive deficits. ASSESSMENT: 1. Brainstem cerebrovascular accident. 2. Right-sided weakness. 3. Dysarthria. 4. Recommendation to do an outpatient 30-day event monitor to look for atrial fibrillation. 5. Hyperglycemia. 6. Hypothyroidism. PLAN: The overall plan of care is based on the preadmission screen, post-admission physician evaluation and information garnered from therapy assessments. 1. Estimated length of stay is probably 1-2 weeks pending progress. 2. Medical prognosis is reasonably good. 3. Anticipated interventions includes the interdisciplinary acute inpatient rehabilitation program. 4. Anticipated functional outcomes would be for the patient to become modified independent with transfers, mobility, ADLs, cognition and swallowing, so he can return back to the home setting. Goal will probably need to go back to the home setting at least at a walker level. 5. Discharge destination would be back home where he was living for by himself. There is discussion with him, possibly moving in with a female friend. 6. Expected therapy by discipline includes PT, OT and speech 1 hour per day each five days a week throughout the duration of the acute inpatient rehabilitation stay. ��������������������������������������������� <ELECTRONICALLY SIGNED> ���������������������������������������� By: Hector Berrios MD ��������������������������������������������� 08/25/18 1109 0740 0829 Hector Berrios MD /[facility]
--- NOTE | 2018-08-25 11:09 | HC ---
[facility] [address] [place] [address] CONSULTATION Name: TERENCE PETER Room #: 510-P ADM IN M.R.#: [id number] Admission: 08/15/18 ������������������ Attend Phys: Hector Berrios MD Discharge: ������������������ Date of : 32 Report #: [id number] THIS REPORT FOR: //name// CC: Hector Hernandez Rivero DATE OF SERVICE: 08/16/2018 HISTORY OF PRESENT ILLNESS: The patient is an 88-year-old white male who originally presented to [facility] on 08/12/2018 with slurring of speech and right-sided weakness. He was unable to ambulate and nearly fell when trying to stand. Upon admission, he was seen by Neurology. Workup was consistent with a brainstem CVA. Recommendations were that he have an event monitor as an outpatient to rule out atrial fibrillation. He was started on aspirin. We were consulted in rehabilitation medicine consultation. PAST MEDICAL HISTORY: Includes sleep apnea, hypertension, left index finger amputation, hernia repair, abdominal x 3, cholecystectomy, carpal tunnel repair, neck surgery in 09/2008, high cholesterol, restless legs syndrome and hyperglycemia/diabetes mellitus. MEDICATIONS: Please see the full medication listing. This includes vitamins, herbals, and supplements as per report. ALLERGIES: No known drug allergies. HABITS: Alcohol use weekly. No history of tobacco abuse. No history of recreational drug abuse. SOCIAL HISTORY: Lives alone, two steps entry, [place], [place]. Driving in the community, was independent. No gait aids. Has an involved lady friend. REVIEW OF SYSTEMS: No current complaints of chest pain, shortness of breath, abdominal discomfort. No focal extremity pain complaints. PHYSICAL EXAMINATION: GENERAL: Pleasant 88-year-old right-handed white male in no obvious distress. VITAL SIGNS: Stable. He was seen in the intensive care unit. Facies were symmetric except for a mild depressed right nasolabial fold and a slight right facial droop. EOMs are full. No obvious visual field neglect. Functional range of motion of both upper and lower extremities. He has some mild right-sided weakness, probably a 4-/5 upper and lower extremity with some mild decreased coordination. He has full range of motion. Strength of the left upper and left lower extremity. He might have some slight decrease in sensation to simultaneous stimulation, right upper and right lower extremity. He has some decreased balance when attempting to get up. [facility] [address] [place] [address] CONSULTATION Name: TERENCE PETER Room #: 510-P [facility] IN [facility]#: [id number] Admission: 08/15/18 ������������������ Attend Phys: Hector Berrios MD Discharge: ������������������ Date of : 32 Report #: [id number] ASSESSMENT: An 88-year-old right-handed white male with the following problem list: 1. Brainstem cerebrovascular accident. 2. Mild right-sided hemiparesis. 3. Dysarthria. 4. Rule out dysphagia. 5. Hyperglycemia/diabetes mellitus. 6. Elevated cholesterol. 7. Restless legs syndrome. 8. Hypertension. PLAN: Therapies are continuing their evaluations. Would anticipate he should be a good candidate for an acute in-hospital inpatient rehabilitation stay. We will be glad to follow along with you. ��������������������������������������������� <ELECTRONICALLY SIGNED> ���������������������������������������� By: Hector Berrios MD ��������������������������������������������� 08/25/18 1109 0811 1342 Hector Berrios MD /PMT
--- NOTE | 2018-08-25 11:33 | NUR ---
PT IN BETTER SPIRITS, TALKING ABOUT CHILDREN, BRENDON, MARIXA HIS SO. LET HIM KNOW WE'D WALK HALLS LATER TOGETHER TO GET HIM OUT OF HIS ROOM/GIVE HIM MORE ATTN
--- NOTE | 2018-08-25 13:19 | NUR ---
PT'S SO, MARIXA, CALLED TO SAY SHE WASN'T COMING TO VISIT TODAY, PT HUNG UP THE PHONE FUSSING/UPSET. SAT WITH HIM FOR TEN MIN, HEATED UP COFFEE, HE LIKES HAVING SOMEONE TO TALK TO. WILL AMB IN HALLS WITH HIM
--- NOTE | 2018-08-25 18:28 | NUR ---
PT AMB IN HALLS OUTSIDE UNIT 2X W/NURSE, AND ONCE AROUND INTERIOR, SLOW AND STEADY
[2018-08-25 20:23] VITALS: BP 144/68
--- NOTE | 2018-08-26 00:40 | NUR ---
PT ALERT AND ORIENTED X 4. MODIFIED INDEPENDENT IN ROOM WITH WALKER. PT DENIES PAIN OR DISCOMFORT. PT APPEARS TO BE SLEEPING ON HOURLY ROUNDS.
[2018-08-26 04:58] LABS: CALCIUM 8.7 mg/dL (8.5-10.1); HEMATOCRIT 37.1 % (42.0-52.0); HEMOGLOBIN 12.5 gm/dL (14.0-18.0); MAGNESIUM 1.8 mg/dL (1.8-2.4); MCH 31.8 pg (26.0-34.0); MCHC 33.7 g/dL (28.0-37.0); MCV 94.5 fL (80.0-100.0); RBC 3.93 mil/uL (4.50-6.00); RDW 12.5 % (10.5-14.5); WBC 6.2 thou/uL (4.0-11.0)
[2018-08-26 08:00] VITALS: BP 159/73
[2018-08-26 09:50] VITALS: BP 165/76
--- NOTE | 2018-08-26 09:52 | NUR ---
PT. DISCHARGING TODAY TO HOME WITH [facility] SPOKE WITH ANAYELI AND SHE RECEIVED DC ORDERS/SUMMARY AND WILL NOTIFY PT. OF TIME OF VISITS.
[2018-08-26] MEDS ORDERED: ASA5UEC PO (11:15)
--- NOTE | 2018-08-26 11:40 | NUR ---
PT ALERT AND ORIENTED TIMES FOUR. BP ELVATED THIS MORNING SCHEDULED BP MEDS GIVEN. 93%RA. PT DENIES PAIN/SOA. PT UP AMBULATING IN ROOM WITH STADY GAIT. PT TOLERATES MEDS AND MEALS. PT EXCITED FOR DISCHRGE TODAY. PT PROGRESSING TOWRADS POC GOALS.
--- NOTE | 2018-08-27 14:52 | HC ---
[facility] [address] [place] [address] CONSULTATION Name: TERENCE PETER Room #: 510-P [facility] IN M.R.#: [id number] Admission: 08/15/18 ������������������ Attend Phys: Hector Berrios MD Discharge: 08/26/18 ������������������ Date of : 32 Report #: [id number] THIS REPORT FOR: //name// CC: Hector Rivero DATE OF SERVICE: 08/20/2018 NEUROBEHAVIORAL STATUS EXAMINATION ATTENDING PHYSICIAN: Hector Berrios MD ENGRAVER TIRE MOLD: David Cabrera, PhD CLINICAL PRESENTATION: The patient is an 88-year-old male admitted to the rehabilitation unit at [facility] for comprehensive inpatient rehabilitation program following a cerebrovascular accident. He is reported to have been admitted on 08/12/2018 with slurred speech, right-sided weakness and underwent TPA treatment. He was subsequently diagnosed with a brain stem CVA. The patient reported that he was returning from the home of a female peer when he noticed symptoms begin to develop. He subsequently called her and she came to his home and then brought him to the hospital for treatment. He has a past medical history of obstructive sleep apnea, hypertension, left index finger amputation, hernia repair, abdominal x 3; cholecystectomy, carpal tunnel repair of the right wrist, neck surgery, elevated cholesterol and restless legs syndrome. A complete description of his medical condition and history along with medications can be found in his medical record. Neuropsychological consultation was requested to provide assistance in the assessment of cognitive and emotional status and to provide recommendations and services. Prior to this most recent event, he was driving and living independently in his own home. The patient has 5 children. All children live outside the [place] area. He is x 2; however, he maintains a close relationship with a female peer. 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 He completed the GED while in the [employer]. There is no reported history of alcohol/drug abuse or treatment for mood disorder. TECHNIQUES UTILIZED: Clinical interview, review of medical records, staff consultation, behavioral observation, mini mental status exam 2 standard version, clock drawing and verbal fluency assessment (letter and category). EXAMINATION FINDINGS: The patient was alert and cooperative with the assessment. He accurately described events surrounding his admission. There is evidence of verbal fluency deficits consistent with a mild expressive [facility] [address] [place] [address] CONSULTATION Name: TERENCE PETER Room #: 510-P [facility] IN [facility].#: [id number] Admission: 08/15/18 ������������������ Attend Phys: Hector Berrios MD Discharge: 08/26/18 ������������������ Date of : 32 Report #: [id number] aphasia. He reports preexisting difficulty with memory and word finding. He is also hard of hearing. Longstanding difficulty with sleep is described. Appetite is within normal limits. Mild degree of anxiety is reported in regard to his wellbeing and recovery from the stroke. Performance on the MMSE 2 brief version was in the mild range of impairment with a raw score of 12/16, T score of 31 and percentile rank of 3. He was 3/3 for initial registration, 4/5 for orientation to time, 5/[address] He was 0/3 for immediate recall of 3 items after a brief time delay and distraction. Performance on the MMSE 2 standard version was within normal limits with a raw score of 25/30, T score of 44 and percentile rank of 27. He was 5/5 for serial sevens, 2/2 for naming, 0/1 for repetition, 3/3 for comprehension, 1/1 for reading, writing and being able to copy a simple geometric design. Clock drawing was within normal limits. Brief letter fluency assessment was in the borderline range with a T score of 33 and percentile rank of 4. Category fluency was in the average range with a T score of 45 and percentile rank of 31. The patient is presenting with deficits in immediate recall and verbal fluency. This type of presentation is likely the result of vascular disease associated with his stroke. 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 RECOMMENDATIONS: The patient will benefit from continued speech therapy to assist with verbal fluency and address issues of expressive speech. He will also benefit from compensatory strategies to assist with immediate recall. Reassurance along with breathing strategies will help him manage anxiety. Increased educational information for the patient and family will be helpful to clarify neurocognitive deficits and importance of followup. Thank you very much for allowing me to provide the consultation on this patient. ��������������������������������������������� <ELECTRONICALLY SIGNED> ���������������������������������������� By: David Cabrera, PhD ��������������������������������������������� 08/27/18 1452 1227 0101 David Cabrera, PhD /nt
== END 2018-08-26 13:16 | disposition home health service (06) | DRG 65 ==
LOC: ENTRNSPT 08-26 13:07 → EDTRNSPTSTS 08-26 13:09
PROVIDERS: Nurse Practitioner; Nurse Practitioner Family; ADMIT Physical Medicine & Rehabilitation
DX: I63.89 Other cerebral infarction (principal); I69.351 Hemiplegia and hemiparesis following cerebral infarction affecting right dominant side; Z60.2 Problems related to living alone; R47.1 Dysarthria and anarthria; E11.65 Type 2 diabetes mellitus with hyperglycemia; E78.00 Pure hypercholesterolemia, unspecified; G25.81 Restless legs syndrome; I10 Essential (primary) hypertension; E03.9 Hypothyroidism, unspecified; G31.84 Mild cognitive impairment of uncertain or unknown etiology; F41.9 Anxiety disorder, unspecified; G47.33 Obstructive sleep apnea (adult) (pediatric); G89.29 Other chronic pain; M54.5 Low back pain; I48.91 Unspecified atrial fibrillation; Z90.49 Acquired absence of other specified parts of digestive tract; Z79.84 Long term (current) use of oral hypoglycemic drugs
CPT/HCPCS: 10112

== ENCOUNTER → 2019-08-24 | Outpatient (CLI) | payer OTHER ==
[~2019-08-24] MED LIST changes: +ACETAMINOPHEN325 M1 PO; +ASA5UEC PO; +LISINOPRIL5 MG PO
== END ==
LOC: SJCVC 13:34
DX: I48.0 Paroxysmal atrial fibrillation (principal); I10 Essential (primary) hypertension; I63.9 Cerebral infarction, unspecified; E78.5 Hyperlipidemia, unspecified; E11.9 Type 2 diabetes mellitus without complications; Z90.49 Acquired absence of other specified parts of digestive tract; Z79.899 Other long term (current) drug therapy

== ENCOUNTER → 2020-10-11 | Outpatient (CLI) | payer OTHER ==
[~2020-10-11] MED LIST changes: +ASPIRIN EC325 M1 PO; +EXCEDRIN CAPLE1 EACH PO
== END ==
LOC: LAB 12:23
PROVIDERS: ATTEND Specialist
DX: Z01.812 Encounter for preprocedural laboratory examination (principal); Z20.822 Contact with and (suspected) exposure to COVID-19

== ENCOUNTER → 2020-10-16 | Outpatient (CLI) | payer OTHER ==
[~2020-10-16] VITALS: Ht 175.3 cm; Wt 80.3 kg
[~2020-10-16] MED LIST changes: +CALCIUM500 MG PO; +ELIQUIS2.5 MG PO; +KRILL OIL500 MG PO; +TYLENOL325 M1 PO; +ZOCOR20 MG PO
--- NOTE | 2020-10-26 09:46 | O ---
[facility] [place] [address] [place] [address] OPERATIVE REPORT Name: TERENCE PETER Room #: REG J[facility] Edwige#: [id number] Admission: 10/16/20 Attend Phys: Peter Mcgarry Discharge: Date of : 32 Report #: [id number] THIS REPORT FOR: cc: David Rivero MD, Neal A. MD McElhinney, Christian C. MD ~ DOC #: [id number] cc: David Rivero MD, MD Peter Fung MD DATE OF SERVICE: 10/16/2020 PROCEDURE PERFORMED: Colonoscopy with bleeding control. HISTORY OF PRESENT ILLNESS: The patient is an 89-year-old male, who in June had one day of significant bright red blood per rectum, multiple episodes and then had one or two days following of a lesser amount of bleeding. He has had no further bleeding since. Reportedly, last colonoscopy was 15 years ago and reportedly negative. He denies any abdominal pain or diarrhea. He does have some constipation at times. His weight has been stable. He has had a history of prostate cancer, status post radiation. The patient is also on Eliquis and aspirin, which has been held lately for cardiac condition. Plan is for colonoscopy. DESCRIPTION OF PROCEDURE: Risks and benefits of the procedure were explained to the patient, those risks including but not limited to bleeding, perforation and the risk of sedation. He understood these risks and gave informed consent. Sedation was given using propofol per anesthesia. Next, digital rectal exam was initially performed, which was normal. Next, using a the pediatric Olympus colonoscope, the scope was placed in the patient's anus and advanced under direct vision into the distal sigmoid, at which point the multiple diverticula were noted as well as a significant narrowing and tortuosity of the distal sigmoid. Despite several efforts, I was not able to pass this area. The scope was then withdrawn and a standard Olympus upper endoscope was then used. I was able to advance the scope through the distal sigmoid colon area of narrowing with some difficulty. I advanced the scope to what appeared to be the ascending colon, because of the length of the scope, I was not able to advance the scope fully to the cecum. Therefore, this was not evaluated. The portion of the ascending colon that was visualized was normal. Overall, prep was good. The transverse and descending colon were normal. Multiple diverticula were noted in the sigmoid colon. Again, there was significant narrowing and tortuosity in the distal sigmoid. No mass lesions were noted. No evidence of bleeding or stigmata of recent bleeding. The upper and mid rectum was normal; however, in the distal rectum, there was mild radiation proctitis noted. No evidence of bleeding. Small internal hemorrhoid was also noted. Because of the previous history of bright red blood per rectum, I did proceed with treating radiation [address] [address] OPERATIVE REPORT Name: TERENCE PETER Room #: [facility]#: [id number] Admission: 10/16/20 Attend Phys: Peter Mcgarry Discharge: Date of : 32 Report #: [id number] proctitis with APC cautery. No evidence of bleeding was noted after cauterization. At this point, the scope was then withdrawn and the procedure terminated. The patient tolerated the procedure well. IMPRESSION: 1. Significant sigmoid diverticulosis with narrowing in the distal sigmoid and tortuosity, unable to advance a pediatric colonoscope through this area as described above. Therefore, upper scope was used; however, because of this is not able to reach the patient's cecum, only able to advance the scope to the ascending colon. 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 Treated with APC cautery today. 3. Internal hemorrhoid. No evidence of bleeding. RECOMMENDATIONS: 1. Observe the patient post-procedure. 2. Could consider a barium enema to further evaluate the cecum and a portion of the ascending colon that was not visualized. 3. I suspect the patient had a diverticular bleed in June, although radiation proctitis bleed is possible. This was treated today. Also, possible hemorrhoid, but less likely based on the amount of blood that was described. At this point, would observe. Thank you for allowing me to participate in his care. Peter España MD CCM/BEVERLY <ELECTRONICALLY SIGNED> By: Peter España MD 10/26/20 0946 1059 1327 Peter España MD /nt
== END | disposition home or self-care (01) ==
LOC: GI 09:02
PROVIDERS: ATTEND Specialist
DX: K59.00 Constipation, unspecified (principal); K62.7 Radiation proctitis; K57.30 Diverticulosis of large intestine without perforation or abscess without bleeding; K64.8 Other hemorrhoids; I10 Essential (primary) hypertension; E11.9 Type 2 diabetes mellitus without complications; E78.00 Pure hypercholesterolemia, unspecified; Z98.890 Other specified postprocedural states; Z79.899 Other long term (current) drug therapy; Z85.46 Personal history of malignant neoplasm of prostate; Z85.828 Personal history of other malignant neoplasm of skin; Z90.49 Acquired absence of other specified parts of digestive tract; Z98.41 Cataract extraction status, right eye; Z98.42 Cataract extraction status, left eye; Z86.73 Personal history of transient ischemic attack (TIA), and cerebral infarction without residual deficits
CPT/HCPCS: 62110; 62900

== ENCOUNTER → 2021-06-23 | Outpatient (CLI) | payer OTHER | LOC: SJCVC 13:21 | PROVIDERS: ATTEND Internal Medicine | DX: R94.31 Abnormal electrocardiogram [ECG] [EKG] (principal); I48.0 Paroxysmal atrial fibrillation; E11.9 Type 2 diabetes mellitus without complications; E78.5 Hyperlipidemia, unspecified; G45.9 Transient cerebral ischemic attack, unspecified; I10 Essential (primary) hypertension; Z79.82 Long term (current) use of aspirin; Z79.84 Long term (current) use of oral hypoglycemic drugs; Z79.899 Other long term (current) drug therapy ==